=== PATIENT | female | born 1975 | race Caucasian/White ===

== ENCOUNTER 2017-02-07 22:59 | Emergency (ER) | payer MEDICAID ==
[~2017-02-07] VITALS: Ht 167.6 cm; Wt 70.3 kg
[2017-02-07] MEDS ORDERED: NKM (23:11)
[2017-02-07] MEDS ORDERED: Norco 5mg/325mg tab ONE (23:20)
--- NOTE | 2017-02-07 23:27 | Emergency Room Report ---
History of Present Illness General Chief Complaint: Pain Source: Patient Present Illness HPI This is a 41-year-old female with no significant past medical history. She presents with chief complaint left rib pain. 2 days ago she fell onto a metal pole. She was carrying boxes and suitcases as she was moving in. She slipped and fell directly into a metal pole that was the bushes. Complaining of severe pain in that area. Worse with coughing. Worse with movement. Worse with deep breath. Pain is 10 out of 10. Better with rest. Allergies: Coded Allergies: No Known Allergies (Unverified , 02/07/17) Patient History Past Medical History: see triage record, old chart reviewed Past Surgical History: none Pertinent Family History: none Social History: Denies: smoking Now: No Immunizations: other Reviewed Nursing Documentation: PMH: Agreed, PSxH: Agreed Review of Systems Eye: Denies: blurred vision, eye pain ENT: Denies: ear pain, nose congestion, throat swelling Respiratory: Denies: cough, shortness of breath Cardiovascular: Denies: chest pain, palpitations Gastrointestinal: Denies: abdominal pain, diarrhea, nausea, vomiting Musculoskeletal: Denies: back pain, joint pain Skin: Denies: rash Neurological: Denies: headache, numbness Endocrine: Denies: increased thirst, increased urine Hematologic/Lymphatic: Denies: easy bruising All Other Systems: negative except mentioned in HPI Physical Exam Vital Signs Date Time Temp Pulse Resp B/P Pulse Ox O2 Delivery O2 Flow Rate FiO2 02/07/17 23:07 98.6 92 16 155/98 98 Room Air vitals with hypertension Sp02 EP Interpretation: reviewed, normal General Appearance: well appearing, no apparent distress, alert Head: normocephalic, atraumatic Eyes: bilateral eye EOMI, bilateral eye PERRL ENT: hearing grossly normal, normal pharynx Neck: full range of motion, supple, no meningismus Respiratory: lungs clear, normal breath sounds, other - Tenderness to the left lateral rib along the eighth or ninth rib. There is ecchymosis and crepitus. Cardiovascular #1: regular rate, rhythm, no murmur Gastrointestinal: normal bowel sounds, non tender, no mass, no organomegaly, no bruit, non-distended Musculoskeletal: back normal, gait/station normal, normal range of motion Psychiatric: mood/affect normal Skin: warm/dry Medical Decision Making Diagnostic Impression: Primary Impression: Left rib fracture Qualified Codes: S22.32XA - Fracture of one rib, left side, initial encounter for closed fracture ER Course Is present with a fall and has a left rib fracture. No pneumothorax. No obligation we will discharge home. Chest X-Ray Diagnostic Results EP Interpretation: Yes Findings: no consolidation, no effusion, no pneumothorax, other Number of Views: other - 5 Last Vital Signs Date Time Temp Pulse Resp B/P Pulse Ox O2 Delivery O2 Flow Rate FiO2 02/07/17 23:07 98.6 92 16 155/98 98 Room Air Status: improved Disposition: HOME, SELF-CARE Condition: Stable Scripts Hydrocodone/Acetaminophen 5-325* (HYDROCODONE/ACETAMINOPHEN 5-325*) 1 Each Tablet 1 TAB ORAL Q6H Y for For Pain, #30 TAB 0 Refills Prov: DEBI FLOWER M.D. 02/08/17 Referrals: [facility],REFERRING (PCP) Additional Instructions: No strenuous activity. No sudden movement. Following the DrLetha in 7 days. Return if symptom worsen. DEBI FLOWER M.D. Feb 07, 2017 23:27
[2017-02-07 23:28] VITALS: BP 149/88
[2017-02-07] MEDS ORDERED: Norco 5mg/325mg tab ORAL ONE (23:30)
[2017-02-08] MEDS ORDERED: HYDROCODON-ACE1 EA15 ORAL (00:36)
[2017-02-08 00:44] VITALS: BP 149/88
--- NOTE | 2017-02-08 10:32 | Diagnostic Imaging Report ---
Indication: Pain Comparison: None Findings: There are fractures of the left ninth and probable 10th rib. There is no pneumothorax, pleural effusion or evidence of a lung contusion injury. Impression: Acute fracture of the left ninth rib, possibly the 10th rib as well.
== END 2017-02-08 00:45 | disposition home or self-care (01) ==
LOC: EMR 23:22
DX: S22.32XA Fracture of one rib, left side, initial encounter for closed fracture (principal); W01.0XXA Fall on same level from slipping, tripping and stumbling without subsequent striking against object, initial encounter; Y92.89 Other specified places as the place of occurrence of the external cause
CPT/HCPCS: 99283

== ENCOUNTER 2018-02-28 19:14 | Emergency (ER) | payer MEDICAID ==
[~2018-02-28] VITALS: Ht 170.2 cm; Wt 61.2 kg
[~2018-02-28 19:14] MED LIST: HYDROCODON-ACE1 EA15 ORAL; NKM
[2018-02-28] MEDS ORDERED: Sodium Chloride 500ML 500 ML IV ONE (19:36)
[2018-02-28] MEDS ORDERED: Morphine Sulfate 4mg/ml Inj IVP ONE (19:45)
--- NOTE | 2018-02-28 19:57 | Emergency Room Report ---
History of Present Illness General Chief Complaint: Dyspnea/Respdistress Source: Patient Present Illness HPI 42-year-old female presents ED for evaluation. Patient complaining of shortness of breath for 2 weeks. Denies any cough. Denies any history of asthma. Denies smoking or drug use. Denies any chest pain. States that she has history of anemia and when her hemoglobin gets low she starts to feel short of breath. History of iron deficiency anemia. Has required transfusions in the past. Has had iron infusions in the past as well. No other aggravating relieving factors. Denies any other associated symptoms Allergies: Coded Allergies: No Known Allergies (Unverified , 02/07/17) Patient History Past Medical History: other - anemia Past Surgical History: none Pertinent Family History: none Social History: Denies: smoking, alcohol use, drug use Last Menstrual Period: a month ago Now: No : 5 Para: 4 Immunizations: UTD Reviewed Nursing Documentation: PMH: Agreed; PSxH: Agreed Review of Systems All Other Systems: negative except mentioned in HPI Physical Exam Vital Signs Date Time Temp Pulse Resp B/P (MAP) Pulse Ox O2 Delivery O2 Flow Rate FiO2 02/28/18 19:22 98.9 95 24 131/69 100 Room Air 99.0 Sp02 EP Interpretation: reviewed, normal General Appearance: no apparent distress, alert, GCS 15, non-toxic Head: normocephalic, atraumatic Eyes: bilateral eye normal inspection, bilateral eye PERRL ENT: hearing grossly normal, normal pharynx, no angioedema, normal voice Neck: full range of motion, supple/symm/no masses Respiratory: chest non-tender, lungs clear, normal breath sounds, speaking full sentences Cardiovascular #1: regular rate, rhythm, no edema Cardiovascular #2: 2+ carotid (R), 2+ carotid (L), 2+ radial (R), 2+ radial (L) , 2+ dorsalis pedis (R), 2+ dorsalis pedis (L) Gastrointestinal: normal bowel sounds, non tender, soft, non-distended, no guarding, no rebound Rectal: deferred Genitourinary: normal inspection, no CVA tenderness Musculoskeletal: back normal, gait/station normal, normal range of motion, non- tender Neurologic: alert, oriented x3, responsive, motor strength/tone normal, sensory intact, speech normal Psychiatric: judgement/insight normal, memory normal, mood/affect normal, no suicidal/homicidal ideation Reflexes: 3+ bicep (R), 3+ bicep (L), 3+ tricep (R), 3+ tricep (L), 3+ knee (R) , 3+ knee (L) Skin: normal color, no rash, warm/dry, well hydrated Lymphatic: no adenopathy Medical Decision Making Diagnostic Impression: Primary Impression: Weakness ER Course Hospital Course 42-year-old female presents ED complaining of weakness, shortness of breath. History of anemia Differential diagnoses include: anemia, ACS, NC, PTX, pneumonia Clinical course Patient placed on stretcher. After initial history and physical I ordered labs , ekg, cxr Labs-hemoglobin and hematocrit within normal limits, no other electrolyte abnormalities. trop negative EKGnormal sinus rhythm no acute ischemic changes interpreted by me Chest x-ray shows no acute process Discussed findings with patient. Given negative workup with stable vitals, I believe patient be safely discharged to home pending close outpatient follow-up Diagnosis - weakness Stable and discharged to home. Followup with PMD. Return to ED if symptoms recur or worsen Labs Test 02/28/18 19:30 White Blood Count 7.3 K/UL (4.8-10.8) Red Blood Count 6.14 M/UL (4.20-5.40) Hemoglobin 12.1 G/DL (12.0-16.0) Hematocrit 41.5 % (37.0-47.0) Mean Corpuscular Volume 68 FL (80-99) Mean Corpuscular Hemoglobin 19.7 PG (27.0-31.0) Mean Corpuscular Hemoglobin Concent 29.2 G/DL (32.0-36.0) Red Cell Distribution Width 16.2 % (11.6-14.8) Platelet Count 393 K/UL (150-450) Mean Platelet Volume 6.7 FL (6.5-10.1) Neutrophils (%) (Auto) 63.1 % (45.0-75.0) Lymphocytes (%) (Auto) 27.6 % (20.0-45.0) Monocytes (%) (Auto) 5.8 % (1.0-10.0) Eosinophils (%) (Auto) 2.9 % (0.0-3.0) Basophils (%) (Auto) 0.7 % (0.0-2.0) Prothrombin Time 9.4 SEC (9.30-11.50) Prothromb Time International Ratio 0.9 (0.9-1.1) Activated Partial Thromboplast Time 26 SEC (23-33) Sodium Level 139 MMOL/L (136-145) Potassium Level 4.1 MMOL/L (3.5-5.1) Chloride Level 105 MMOL/L (98-107) Carbon Dioxide Level 25 MMOL/L (21-32) Anion Gap 9 mmol/L (5-15) Blood Urea Nitrogen 6 mg/dL (7-18) Creatinine 0.7 MG/DL (0.55-1.30) Estimat Glomerular Filtration Rate > 60 mL/min (>60) Glucose Level 89 MG/DL (74-106) Calcium Level 8.6 MG/DL (8.5-10.1) Total Bilirubin 0.2 MG/DL (0.2-1.0) Aspartate Amino Transf (AST/SGOT) 17 U/L (15-37) Alanine Aminotransferase (ALT/SGPT) 18 U/L (12-78) Alkaline Phosphatase 53 U/L (46-116) Total Creatine Kinase 84 U/L (26-308) Creatine Kinase MB 1.4 NG/ML (0.0-3.6) Creatine Kinase MB Relative Index 1.6 Troponin I 0.003 ng/mL (0.000-0.056) Pro-B-Type Natriuretic Peptide 75 pg/mL (0-125) Total Protein 7.6 G/DL (6.4-8.2) Albumin 3.7 G/DL (3.4-5.0) Globulin 3.9 g/dL Albumin/Globulin Ratio 0.9 (1.0-2.7) EKG Diagnostic Results Rate: normal Rhythm: NSR ST Segments: no acute changes ASA given to the pt in ED: No Rhythm Strip Diag. Results EP Interpretation: yes Rhythm: NSR, no PVC's, no ectopy Chest X-Ray Diagnostic Results Chest X-Ray Diagnostic Results : Chest X-Ray Ordered: Yes # of Views/Limited/Complete: 1 View Indication: Shortness of Breath EP Interpretation: Yes Interpretation: no consolidation, no effusion, no pneumothorax, no acute cardiopulmonary disease Impression: No acute disease Electronically Signed by: Electronically signed by Gavin Mitchell MD Last Vital Signs Date Time Temp Pulse Resp B/P (MAP) Pulse Ox O2 Delivery O2 Flow Rate FiO2 02/28/18 19:22 98.9 95 24 131/69 100 Room Air 99.0 Status: improved Disposition: HOME, SELF-CARE Condition: Stable Referrals: [facility],REFERRING (PCP) Gavin Mitchell MD Feb 28, 2018 19:57
[2018-02-28 20:25] LABS: BASOPHILS % (AUTO) 0.7 % (0.0-2.0); EOSINOPHILS % (AUTO) 2.9 % (0.0-3.0); HEMATOCRIT 41.5 % (37.0-47.0); HEMOGLOBIN 12.1 G/DL (12.0-16.0); LYMPHOCYTES % (AUTO) 27.6 % (20.0-45.0); MEAN CORPUSCULAR VOLUME 68 FL (80-99); MONOCYTES % (AUTO) 5.8 % (1.0-10.0); NEUTROPHILS % (AUTO) 63.1 % (45.0-75.0); PLATELET COUNT 393 K/UL (150-450); RED BLOOD COUNT 6.14 M/UL (4.20-5.40); RED CELL DISTRIBUTION WIDTH 16.2 % (11.6-14.8); WHITE BLOOD COUNT 7.3 K/UL (4.8-10.8)
[2018-02-28 20:31] LABS: ANION GAP 9 mmol/L (5-15); BLOOD UREA NITROGEN 6 mg/dL (7-18); CALCIUM 8.6 MG/DL (8.5-10.1); CARBON DIOXIDE 25 MMOL/L (21-32); CHLORIDE 105 MMOL/L (98-107); CREATININE 0.7 MG/DL (0.55-1.30); POTASSIUM 4.1 MMOL/L (3.5-5.1); SODIUM 139 MMOL/L (136-145)
[2018-02-28 20:34] LABS: INR 0.9 (0.9-1.1)
[2018-02-28 20:45] LABS: ALANINE AMINOTRANSFERASE 18 U/L (12-78); ALBUMIN 3.7 G/DL (3.4-5.0); ALBUMIN/GLOBULIN RATIO 0.9 (1.0-2.7); ALKALINE PHOSPHATASE 53 U/L (46-116); ASPARTATE AMINO TRANSFERASE 17 U/L (15-37); BILIRUBIN,TOTAL 0.2 MG/DL (0.2-1.0); CKMB 1.4 NG/ML (0.0-3.6); CREATINE KINASE 84 U/L (26-308)
[2018-02-28 21:17] VITALS: BP 131/69
--- NOTE | 2018-03-01 10:24 | Diagnostic Imaging Report ---
Indication: Shortness of breath Technique: XRAY Chest 1v Comparison: 02/07/2017 Findings: The cardiomediastinal silhouette is within normal limits. There is no focal consolidation, pneumothorax or pleural effusion. Osseous structures demonstrate no acute abnormality. Impression: No acute cardiopulmonary disease.
== END 2018-02-28 21:19 | disposition home or self-care (01) ==
LOC: EMR 19:46
DX: R53.1 Weakness (principal); R06.02 Shortness of breath; D50.9 Iron deficiency anemia, unspecified
CPT/HCPCS: 36415; 71045; 80053; 82550; 82553; 83880; 84484; 85025; 85610; 85730; 86850; 86900; 86901; 93005; 96374; 96375; 99284; J2270; J7040

== ENCOUNTER 2018-12-13 22:08 | Emergency (ER) | payer MEDICAID ==
[~2018-12-13] VITALS: Ht 170.2 cm; Wt 65.8 kg
--- NOTE | 2018-12-13 22:30 | NUR ---
ED Nurse Note: Pt has seen by Dr. Coley. All orders carried out. Pain Meds given and applied bandage to her right arm. Pt is ready for discharge. D/c instruction and prescription given, Pt verbalized understanding. ID band removed. Pt d/c from ED with steady gait.
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
[2018-12-13 23:13] VITALS: BP 145/82
[2018-12-13] MEDS ORDERED: IBUPROFEN600 MG ORAL (23:25)
[2018-12-13] MEDS ORDERED: AUGMENTIN 875-1 EAC1 ORAL (23:26)
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
== END 2018-12-13 23:30 | disposition home or self-care (01) ==
LOC: EMR 23:00
DX: S50.11XA Contusion of right forearm, initial encounter (principal); Y04.0XXA Assault by unarmed brawl or fight, initial encounter; Y92.89 Other specified places as the place of occurrence of the external cause
CPT/HCPCS: 99282

== ENCOUNTER 2019-03-28 14:41 | Emergency (ER) | payer MEDICAID ==
[~2019-03-28] VITALS: Ht 170.2 cm; Wt 72.6 kg
[~2019-03-28 14:41] MED LIST changes: +AUGMENTIN 875-1 EAC1 ORAL; +IBUPROFEN600 MG ORAL
[2019-03-28 14:55] VITALS: BP 140/90
--- NOTE | 2019-03-28 14:55 | NUR ---
ED Nurse Note: walked in to ED due to unable to remove tampon for 2 weeks. pt stated it started to swell when she tried to remove it and its hurts like 10/10 pain. pt has no fever. nicky zavaleta on bedside. pt stated she has bleeding on vagina since she start to pull the tampons. will continue to monitor.
[2019-03-28] MEDS ORDERED: Ketorolac 30mg Inj IM ONE (15:30)
[2019-03-28] MEDS ORDERED: Lidocaine 1% MPF 10mg/ml 5ml INJ ONE (16:00)
--- NOTE | 2019-03-28 16:03 | NUR ---
ED Nurse Note: pt medicated and tolerated well.
--- NOTE | 2019-03-28 16:34 | Emergency Room Report ---
History of Present Illness General Chief Complaint: General Complaint Source: Medical Record Present Illness HPI 43 YO Female presents to the ED C/o 08/20 in severity pain in the pelvic area/ vagina claiming she has had a tampon stuck for almost two weeks. She reports some vaginal d/c, denies bleeding reports recent unprotected intercourse. Denies suspicion for STI or . Pt. denies lesions, rashes, swollen tender lymph nodes or joint pain. Pt. denies N/V/F/C. Denies abdominal pain or tenderness. Pt. requesting pain shot. specifically names morphine. Allergies: Coded Allergies: No Known Allergies (Unverified , 02/07/17) Patient History Past Medical History: see triage record Past Surgical History: none Pertinent Family History: none Last Menstrual Period: 03/19/19 Reviewed Nursing Documentation: PMH: Agreed; PSxH: Agreed Nursing Documentation-PMH Past Medical History: No History, Except For Review of Systems All Other Systems: negative except mentioned in HPI Physical Exam Vital Signs Date Time Temp Pulse Resp B/P (MAP) Pulse Ox O2 Delivery O2 Flow Rate FiO2 03/28/19 14:44 98.2 98 18 96 Room Air 03/28/19 14:55 140/90 Sp02 EP Interpretation: reviewed, normal General Appearance: alert, GCS 15, non-toxic, mild distress Head: normocephalic, atraumatic Eyes: bilateral eye normal inspection, bilateral eye PERRL ENT: hearing grossly normal, normal voice Neck: full range of motion Respiratory: chest non-tender, lungs clear, normal breath sounds, speaking full sentences Cardiovascular #1: regular rate, rhythm Gastrointestinal: normal bowel sounds, non tender, soft, non-distended, no guarding Genitourinary: normal inspection, no CVA tenderness, ext genitalia/vag normal, other - Pt. has white discharge in the vaginal vault, no obvious retained fb-on pelvic speculum exam, no gential lesions, pt. has extrememly tender cervix. + CMT Musculoskeletal: back normal, gait/station normal, normal range of motion, non- tender Neurologic: alert, oriented x3, responsive, motor strength/tone normal, sensory intact, speech normal, grossly normal Psychiatric: judgement/insight normal Skin: normal color, no rash, warm/dry, well hydrated Lymphatic: no adenopathy Medical Decision Making PA Attestation Dr. Feliz is my supervising Physician whom patient management has been discussed with. Diagnostic Impression: Primary Impression: Pelvic inflammatory disease ER Course 43 YO Female presents to the ED C/o 08/20 in severity pain in the pelvic area/ vagina claiming she has had a tampon stuck for almost two weeks. She reports some vaginal d/c, denies bleeding reports recent unprotected intercourse. Denies suspicion for STI or . Pt. denies lesions, rashes, swollen tender lymph nodes or joint pain. Pt. denies N/V/F/C. Denies abdominal pain or tenderness. Ddx considered but are not limited to UTi , STI, G & C, trichomonas, Vaginitis , cervicitis, bartholins gland cyst or cellulitis, retained vaginal FB, BV, or PID just to name a few. Vital signs: are WNL, pt. is afebrile H&PE are most consistent with suspicion for PID due to significant CMT on exam. -- no FB on pelvic speculum exam. ORDERS: - Wet mount: few WBC's and bacteria ED INTERVENTIONS: -250mg Rocephin IM -Toradol IM DISCHARGE: At this time pt. is stable for d/c to home. Will provide printed patient care instructions, and any necessary prescriptions. Care plan and follow up instructions have been discussed with the patient prior to discharge. Last Vital Signs Date Time Temp Pulse Resp B/P (MAP) Pulse Ox O2 Delivery O2 Flow Rate FiO2 03/28/19 14:55 98 18 Room Air 03/28/19 14:55 98.2 140/90 96 Status: improved Disposition: HOME, SELF-CARE Condition: Stable Scripts Acetaminophen With Codeine (T#3) (TYLENOL #3 TAB*) Y Tab 1 TAB ORAL Q8HR PRN for For Pain, #6 TAB Prov: Marry De La Cruz 03/28/19 Doxycycline Hyclate* (VIBRAMYCIN*) 100 Mg Capsule 100 MG ORAL EVERY 12 HOURS for 14 Days, #28 CAP 0 Refills Prov: Marry De La Cruz 03/28/19 [facility]errals: [facility],REFERR[facility] (PCP) Patient Instructions: Pelvic Inflammatory Disease, [id number] Additional Instructions: Take medications as directed. Follow up with a OBGYN within 3-5 days, even if your symptoms have resolved. Return sooner to ED if new symptoms occur, or current symptoms become worse. - Please note that this Emergency Department Report was dictated using [employer] examiner technology software, occasionally this can lead to erroneous entry secondary to interpretation by the dictation equipment. Marry De La Cruz March 28, 2019 16:34
[2019-03-28] MEDS ORDERED: VIBRAMYCIN100 MG ORAL (16:35)
[2019-03-28] MEDS ORDERED: ACETAMINOPHEN-1 EAC1 ORAL (16:35)
[2019-03-28 16:40] VITALS: BP 140/90
--- NOTE | 2019-03-28 16:40 | NUR ---
ER DISCHARGE NOTE: Patient is cleared to be discharged per ERMD, pt is aox4, on room air, with stable vital signs. pt was given dc and prescription instructions, pt was able to verbalize understanding, pt id band removed without complications. pt is able to ambulate with steady gait. pt took all belongings.
== END 2019-03-28 16:40 | disposition home or self-care (01) ==
LOC: EMR 14:59
DX: N73.9 Female pelvic inflammatory disease, unspecified (principal)
CPT/HCPCS: 87210; 96372; 99284; J0696; J1885

== ENCOUNTER 2019-06-30 09:47 | Emergency (ER) | payer MEDICAID ==
[~2019-06-30] VITALS: Ht 170.2 cm; Wt 68.0 kg
[~2019-06-30 09:47] MED LIST changes: +ACETAMINOPHEN-1 EAC1 ORAL; +VIBRAMYCIN100 MG ORAL
--- NOTE | 2019-06-30 10:07 | Emergency Room Report ---
History of Present Illness General Chief Complaint: Lower Extremity Injury Source: Patient Present Illness HPI She is a 43-year-old female presents after increased left-sided ankle pain. Patient does not know exactly how this began. She reports having increased pain and swelling to the leg for several days. She reports taking ibuprofen without improvement. She denies any fever. She noted increased leg swelling. She states this had onset during some exertion she states that she had hurt her ankle but cannot recall exactly how she did it. Allergies: Coded Allergies: No Known Allergies (Unverified , 02/07/17) Patient History Last Menstrual Period: Now Now: No Reviewed Nursing Documentation: PMH: Agreed; PSxH: Agreed Nursing Documentation-PMH Past Medical History: No History, Except For Review of Systems All Other Systems: negative except mentioned in HPI Physical Exam Vital Signs Date Time Temp Pulse Resp B/P (MAP) Pulse Ox O2 Delivery O2 Flow Rate FiO2 06/30/19 09:52 97.7 91 20 150/74 (99) 99 Room Air General Appearance: well appearing, no apparent distress, alert, GCS 15, Chronically Ill Head: normocephalic, atraumatic ENT: hearing grossly normal, normal voice Neck: full range of motion, supple Respiratory: no respiratory distress, speaking full sentences Musculoskeletal: decreased range of mation, swelling, tenderness - left ankle Neurologic: normal gait Psychiatric: mood/affect normal Skin: other - slight bruising to left anterior leg, soft tissue swelilng Medical Decision Making Diagnostic Impression: Primary Impression: Left ankle sprain Additional Impression: Cellulitis ER Course Patient presented for left ankle pain. Differential diagnosis include was not limited to sprain, contusion, cellulitis, abscess among others. Patient has a benign exam and does not appear to require any laboratory testing at this time. X-ray imaging showed soft tissue swelling without evident fracture or malalignment. Patient was given medications for pain. She is also given prescription for anti-inflammatory medications as well as antibiotics due to some erythema and some questionable cellulitis. Patient was advised to return if worse. Last Vital Signs Date Time Temp Pulse Resp B/P (MAP) Pulse Ox O2 Delivery O2 Flow Rate FiO2 06/30/19 09:52 97.7 91 20 150/74 (99) 99 Room Air Status: improved Disposition: HOME, SELF-CARE Condition: Stable Scripts Lidocaine Hcl (LIDOCAINE HCL) 28.35 Gm Cream..g. 5 % TP DAILY, #30 GM Prov: Panfilo Mckeon MD 06/30/19 Ibuprofen* (MOTRIN*) 600 Mg Tablet 600 MG ORAL Q8H PRN for For Pain, #30 TAB 0 Refills Prov: Panfilo Mckeon MD 06/30/19 Cephalexin* (KEFLEX*) 500 Mg Capsule 500 MG ORAL EVERY 6 HOURS, #40 CAP Prov: Panfilo Mckeon MD 06/30/19 Panfilo Mckeon MD Jun 30, 2019 10:06
[2019-06-30] MEDS ORDERED: HYDROcodone/Acetamin 10/325 tab ORAL ONE (10:15)
--- NOTE | 2019-06-30 10:30 | Diagnostic Imaging Report ---
Indication: Left ankle pain Technique: 3 views of the left ankle Comparison: none Findings: There is soft tissue swelling overlying the lateral malleolus. No acute fractures. No dislocations. The joint spaces are preserved. Impression: Negative
[2019-06-30] MEDS ORDERED: IBUPROFEN600 MG ORAL (11:17)
[2019-06-30] MEDS ORDERED: CEPHALEXIN500 MG ORAL (11:17)
[2019-06-30] MEDS ORDERED: LIDOCAINE HC28.35 GM TP (11:18)
[2019-06-30 11:25] VITALS: BP 141/79
== END 2019-06-30 11:25 | disposition home or self-care (01) ==
LOC: EMR 10:15
DX: L03.116 Cellulitis of left lower limb (principal); S93.402A Sprain of unspecified ligament of left ankle, initial encounter; X58.XXXA Exposure to other specified factors, initial encounter; Y92.9 Unspecified place or not applicable
CPT/HCPCS: 99283

== ENCOUNTER 2019-07-09 21:27 | Emergency (ER) | payer MEDICAID ==
[~2019-07-09] VITALS: Ht 167.6 cm; Wt 65.8 kg
[~2019-07-09 21:27] MED LIST changes: +CEPHALEXIN500 MG ORAL; +LIDOCAINE HC28.35 GM TP
[2019-07-09 21:54] VITALS: BP 129/90
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
--- NOTE | 2019-07-09 22:04 | Emergency Room Report ---
History of Present Illness General Chief Complaint: Female Urogenital Problems Source: Patient Present Illness HPI This is a 43-year-old female with no past medical history. She presents with chief complaint of vaginal pain. She also has sores in that area. Onset for last few days. No fever chills but no nausea no vomiting. Worse with urination. Pain is 9 out of 10. Never had this problem before. No history of STD. She is sexually active. Allergies: Coded Allergies: No Known Allergies (Unverified , 02/07/17) Patient History Past Medical History: see triage record, old chart reviewed Past Surgical History: none Pertinent Family History: none Social History: Denies: smoking Last Menstrual Period: 06/25/19 Now: No Immunizations: other Reviewed Nursing Documentation: PMH: Agreed; PSxH: Agreed Nursing Documentation-PMH Past Medical History: No Stated History Review of Systems Eye: Denies: eye pain, blurred vision ENT: Denies: ear pain, nose congestion, throat swelling Respiratory: Denies: cough, shortness of breath Cardiovascular: Denies: chest pain, palpitations Gastrointestinal: Denies: abdominal pain, diarrhea, nausea, vomiting Genitourinary: Reports: pain Musculoskeletal: Denies: back pain, joint pain Skin: Denies: rash Neurological: Denies: headache, numbness Endocrine: Denies: increased thirst, increased urine Hematologic/Lymphatic: Denies: easy bruising All Other Systems: negative except mentioned in HPI Physical Exam Vital Signs Date Time Temp Pulse Resp B/P (MAP) Pulse Ox O2 Delivery O2 Flow Rate FiO2 07/09/19 21:54 98.6 94 18 129/90 (103) 98 Room Air Vitals unremarkable Sp02 EP Interpretation: reviewed, normal General Appearance: well appearing, no apparent distress, alert Head: normocephalic, atraumatic Eyes: bilateral eye PERRL, bilateral eye EOMI ENT: hearing grossly normal, normal pharynx Neck: full range of motion, supple, no meningismus Respiratory: chest non-tender, lungs clear, normal breath sounds Cardiovascular #1: regular rate, rhythm, no murmur Gastrointestinal: normal bowel sounds, non tender, no mass, no organomegaly, no bruit, non-distended Genitourinary: other - Vaginal exam done with female nurse as citrus fruit packer. External exam showed thick lesion on the left labia extending to the perineum. Musculoskeletal: back normal, gait/station normal, normal range of motion Psychiatric: mood/affect normal Medical Decision Making Diagnostic Impression: Primary Impression: Genital herpes Qualified Codes: A60.04 - Herpesviral vulvovaginitis ER Course Presents with rash consistent with genital herpes. No evidence of deep infection. Will discharge home. Recommend outpatient testing for HIV, hepatitis, syphilis and other STDs. Last Vital Signs Date Time Temp Pulse Resp B/P (MAP) Pulse Ox O2 Delivery O2 Flow Rate FiO2 07/09/19 21:54 98.6 94 18 129/90 (103) 98 Room Air Status: unchanged Disposition: HOME, SELF-CARE Condition: Stable Scripts Lidocaine HCL 2% Jelly* (Lidocaine Jelly 2%*) 5 Ml Jel.pf.jeison 5 ML TOPIC DAILY, #20 ML Prov: Ayaz Coley MD 07/09/19 Valacyclovir Hcl* (VALTREX*) 500 Mg Tablet 1000 MG ORAL TWICE A DAY for 10 Days, TAB Prov: Ayaz Coley MD 07/09/19 Additional Instructions: Follow-up your doctor in 7 days. Recommend outpatient testing for HIV, hepatitis, syphilis and other STDs. Have your partners treated and tested also. Return if worse. Ayaz Coley MD Jul 09, 2019 22:04
[2019-07-09] MEDS ORDERED: LD2JL30 TOPIC (22:20)
[2019-07-09] MEDS ORDERED: VALACYCLOVIR500 MG ORAL (22:20)
--- NOTE | 2019-07-09 22:24 | NUR ---
ED Nurse Note: Patient cleared for discharge, no s/s of acute distress. Ptient verbalized understanding of discharge instructions. Patient tolerated topical medication well. Patient departed with all belongings.
[2019-07-09 22:29] VITALS: BP 129/90
[2019-07-09] MEDS ORDERED: Lidocaine HCl 2% Jelly 6ml Tube TOPIC ONE (22:30)
== END 2019-07-09 22:28 | disposition home or self-care (01) ==
LOC: EMR 22:11
DX: A60.04 Herpesviral vulvovaginitis (principal)
CPT/HCPCS: 99282

== ENCOUNTER 2020-01-05 18:03 | Emergency (ER) | payer MEDICAID ==
[~2020-01-05] VITALS: Ht 167.6 cm; Wt 63.5 kg
[~2020-01-05 18:03] MED LIST changes: +LD2JL30 TOPIC; +VALACYCLOVIR500 MG ORAL
[2020-01-05 18:18] VITALS: BP 137/96
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
--- NOTE | 2020-01-05 19:15 | Diagnostic Imaging Report ---
Indication: Headache Technique: Contiguous 5 mm thick transaxial imaging of the head obtained in a Siemens Sensation [address] scanner. Soft tissue and bone windows generated. Automatic Exposure Control was utilized. Total Dose length Product (DLP): 921.7mGycm CT Dose Index Volume (CTDIvol): 53.4 mGy Comparison: none Findings: The size and configuration of the cortical sulci, basal cisterns, and ventricles are within normal limits for age. There is no mass effect, midline shift, or edema identified. There is no evidence of acute hemorrhage or abnormal intra-axial or extra-axial fluid collections. The bones and soft tissues are unremarkable. Impression: No mass effect, edema or acute bleed. [facility] has communicated the preliminary results to the Emergency Department. Their findings are largely concordant with this report. The CT scanner at [facility] is accredited by the [employer] and the scans are performed using dose optimization techniques as appropriate to a performed exam including Automatic Exposure control.
--- NOTE | 2020-01-05 19:23 | Diagnostic Imaging Report ---
Indication: Cervical trauma/pain. Technique: Continuous helical imaging of the cervical spine was obtained transaxially from the skull base to the upper thoracic spine. 2-D coronal and sagittal reformatted images were obtained. Automatic Exposure Control was utilized. Total Dose length Product (DLP): 131.[address] Dose Index Volume (CTDIvol): 5.6 mGy Comparison: None Findings: There is moderate kyphosis of the cervical spine which may be due to muscle spasm. Degenerative endplate spurs demonstrated at C4-5 and C5-6. There is some narrowing of the C5-6 disc. No fracture seen. Posterior elements and facets are unremarkable. There is no soft tissue swelling. IMPRESSION: No acute fracture identified. Loss of cervical lordosis with moderate kyphosis noted. This may be due to muscle spasm. The CT scanner at [facility] is accredited by the [employer] and the scans are performed using dose optimization techniques as appropriate to a performed exam including Automatic Exposure control.
[2020-01-05] MEDS ORDERED: ROBAXIN-750750 MG PO (19:37)
[2020-01-05] MEDS ORDERED: TYLENOL EXTRA500 MG ORAL (19:37)
[2020-01-05] MEDS ORDERED: Methocarbamol 750mg tab ORAL ONE (19:45)
[2020-01-05 19:55] VITALS: BP 132/88
--- NOTE | 2020-01-05 19:55 | NUR ---
ED Nurse Note: All orders completed per ERMD orders. Pt cleared by health care Provider for discharge. DC instructions/prescription was given and explained to pt and verbalized understanding of teachings. Instructed pt to follow up with primary care physican within one week. All medical deviecs such as ID band removed. Pt is AAO x4, ambulatory and left with all personal belongings.
== END 2020-01-05 19:55 | disposition home or self-care (01) ==
LOC: EDBD 18:03 → EMR 19:43
DX: S16.1XXA Strain of muscle, fascia and tendon at neck level, initial encounter (principal); S00.93XA Contusion of unspecified part of head, initial encounter; M62.838 Other muscle spasm; Y04.2XXA Assault by strike against or bumped into by another person, initial encounter; Y93.9 Activity, unspecified; Y92.9 Unspecified place or not applicable
CPT/HCPCS: 70450; 72125; Z7502; 99284

== ENCOUNTER 2020-10-18 09:06 | Emergency (ER) | payer MEDICARE, MEDICAID ==
[~2020-10-18] VITALS: Ht 167.6 cm; Wt 65.8 kg
[~2020-10-18 09:06] MED LIST changes: +ROBAXIN-750750 MG PO; +TYLENOL EXTRA500 MG ORAL
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
[2020-10-18] MEDS ORDERED: TYLENOL EXTRA500 MG ORAL (09:49)
[2020-10-18] MEDS ORDERED: IBUPROFEN600 M1 ORAL (09:49)
[2020-10-18 09:52] VITALS: BP 150/85
[2020-10-18] MEDS ORDERED: Ketorolac 30mg Inj IV ONE (10:00)
[2020-10-18 10:11] VITALS: BP 144/82
--- NOTE | 2020-10-18 10:37 | Diagnostic Imaging Report ---
EXAM: X-RAY XRAY Elbow Min 3v L CLINICAL HISTORY: Trauma with elbow pain. COMPARISON: None FINDINGS: Total of 3 views of the left elbow were obtained. There is a buckle fracture of the radial neck. The other bony appendages are intact. Joint spaces are unremarkable. Surrounding soft tissue is normal. IMPRESSION: RADIAL NECK BUCKLE FRACTURE.
== END 2020-10-18 10:11 | disposition home or self-care (01) ==
LOC: EMR 09:17
DX: S52.132A Displaced fracture of neck of left radius, initial encounter for closed fracture (principal); W05.2XXA Fall from non-moving motorized mobility scooter, initial encounter; Y92.9 Unspecified place or not applicable
CPT/HCPCS: 73080; 96374; 99284; J1885